=== PATIENT | male | born 1960 | race Caucasian/White ===

== ENCOUNTER → 2016-09-29 | Outpatient (CLI) | payer OTHER ==
--- NOTE | 2016-09-29 10:11 | DI ---
INDICATION: ITS.REASON: CHRONIC COPD; ANXIETY, BIPOLAR, PLANTAR FIBROMATOSIS;TRIGGER FING PROCEDURE: CHEST 2-VIEWS UPRIGHT (PA \T\ LAT) Encounter: Initial COMPARISON: None FINDINGS: The lungs are mildly hyperinflated but clear. Azygos fissure noted incidentally. There is no pleural effusion or pneumothorax. The heart size, mediastinal contours and pulmonary vascularity are within normal limits. There is no significant skeletal abnormality. IMPRESSION: No acute cardiopulmonary disease. Mild hyperinflation suggesting COPD. .
== END ==
LOC: IMA 09:20
PROVIDERS: ATTEND Surgery
DX: J44.9 Chronic obstructive pulmonary disease, unspecified (principal); F41.9 Anxiety disorder, unspecified; F31.9 Bipolar disorder, unspecified